=== PATIENT | male | born 1945 | race Caucasian/White ===

== ENCOUNTER 2017-08-15 08:45 | Day surgery (SDC) | payer OTHER ==
[2017-08-11 15:33] VITALS: BMI 25.4
[2017-08-15 09:21] VITALS: TEMP 97.9
[2017-08-15] MEDS ORDERED: PROPOFOL 20 ML ONE ×2 (09:28)
[2017-08-15 11:14] VITALS: BP 121/74; PULSE 62
--- NOTE | 2017-08-16 14:13 | PATH ---
Surgical Pathology Report Patient Name: JULIETTE OSEI [facility]. Rec. #: [id number] /Age/Gender: 1945 (Age: 71) / M Account: [id number] Location: [facility]OS[facility] Taken: 08/15/2017 Received: 08/15/2017 Reported: 08/16/2017 Physicians: Darrion Martinez M.D. Specimen(s) Received A: BX DUODENUM B: BX ANTRUM C: DISTAL ESOPHAGUS Clinical History .GERD, rule out colon cancer Postoperative diagnosis: Rule out celiac disease, gastritis, rule out Spann's, diverticulosis Final Diagnosis A. DUODENUM, BIOPSY: DUODENAL MUCOSA WITH CHRONIC DUODENITIS. NO EVIDENCE OF CELIAC DISEASE. B. GASTRIC ANTRUM, BIOPSY: GASTRIC MUCOSA WITH CHRONIC GASTRITIS. POSITIVE FOR INTESTINAL METAPLASIA. IMMUNOSTAIN IS NEGATIVE FOR H. PYLORI ORGANISMS. C. DISTAL ESOPHAGUS, BIOPSY: GASTROESOPHAGEAL JUNCTIONAL MUCOSA WITH ACTIVE CHRONIC INFLAMMATION AND FEATURES CONSISTENT WITH REFLUX ESOPHAGITIS. NEGATIVE FOR INTESTINAL METAPLASIA. Electronically Signed Kaylyn Pearson M.D. Gross Description A. Received in formalin, labeled "duodenum" are 3 zapata, irregular portions of soft tissue ranging from 0.1-0.4 cm. in greatest dimension. The specimens are submitted in toto in one cassette. B. Received in formalin, labeled "antrum" are 2 zapata, irregular portions of soft tissue measuring 0.4 and 0.6 cm. in greatest dimension. The specimens are submitted in toto in one cassette. C. Received in formalin, labeled "distal esophagus" are 2 zapata, irregular portions of soft tissue averaging 0.4 cm. in greatest dimension. The specimens are submitted in toto in one cassette. 08/15/201708/15/2017
== END 2017-08-15 11:15 | disposition home or self-care (01) ==
LOC: FASU-ENDO 08:45
PROVIDERS: ATTEND Internal Medicine Gastroenterology
PROC: 0DB48ZX Excision of Esophagogastric Junction, Via Natural or Artificial Opening Endoscopic, Diagnostic (ICD-10-PCS; 2017-08-15)
PROC: 0DB98ZX Excision of Duodenum, Via Natural or Artificial Opening Endoscopic, Diagnostic (ICD-10-PCS; principal; 2017-08-15 10:03)
PROC: 0DB68ZX Excision of Stomach, Via Natural or Artificial Opening Endoscopic, Diagnostic (ICD-10-PCS; 2017-08-15 10:03)
DX: K29.80 Duodenitis without bleeding (principal); K29.50 Unspecified chronic gastritis without bleeding; K31.89 Other diseases of stomach and duodenum; K21.0 Gastro-esophageal reflux disease with esophagitis
CPT/HCPCS: 88305-TC; 88342-TC